=== PATIENT | female | born 1980 | race Caucasian/White ===

== ENCOUNTER 2019-12-01 16:23 | Emergency (ER) | payer MEDICAID ==
[~2019-12-01] VITALS: Ht 157.5 cm; Wt 59.0 kg
[2019-12-01 16:31] VITALS: Ht 157.5 cm; Wt 59.0 kg
[2019-12-01 17:32] LABS: CALCIUM 8.7 mg/dL (8.5-10.1); CARBON DIOXIDE 24.2 mmol/L (21-32); CHLORIDE SERUM 105 mmol/L (98-107); CREATININE SERUM 0.7 mg/dL (0.6-1.0); GFR1 > 60 mL/min; GLUCOSE SERUM 95 mg/dL (74-106); POTASSIUM SERUM 3.9 mmol/L (3.5-5.1); SODIUM SERUM 140 mmol/L (136-145)
[2019-12-01 17:34] LABS: BASOPHIL % 0.2 % (0-2); PLATELET COUNT 264 x10^3mcL (130-400)
[2019-12-01 17:36] LABS: ALBUMIN 4.1 g/dL (3.4-5.0); ALKALINE PHOSPHATASE 41 U/L (46-116); ALT/SGPT 22 U/L (14-59); AST/SGOT 15 U/L (15-37); BILIRUBIN TOTAL 0.6 mg/dL (0.20-1.00); TOTAL PROTEIN, SERUM 7.2 g/dL (6.4-8.2)
[2019-12-01 17:40] LABS: RED CELL DISTRIBUTION WIDTH 19.3 % (11.5-14.5)
[2019-12-01 17:57] VITALS: BP 101/53
[2019-12-01 18:32] LABS: rbc morphology (normal/abnorm) ABNORMAL (NORMAL)
[2019-12-01 18:33] LABS: ovalocyte/elliptocyte 1+
== END 2019-12-01 17:58 | disposition home or self-care (01) ==
LOC: ED 16:23
PROVIDERS: Emergency Medicine
DX: D50.9 Iron deficiency anemia, unspecified (principal)
CPT/HCPCS: 36415